=== PATIENT | female | born 1980 | race Hispanic/Latino ===

== ENCOUNTER 2018-09-07 05:37 | Inpatient (IN) | payer OTHER ==
[2018-09-05 14:51] LABS: HEMATOCRIT 37.8 % (36-48); MEAN CORPUSCULAR HEMOGLOBIN 31.4 pg (27.0-33.0); MEAN CORPUSCULAR HGB CONC 34.6 g/dL (32.0-36.0); MEAN CORPUSCULAR VOLUME 90.7 fL (79-99); NUCLEATED RED BLOOD CELLS 0.1 % (0.0-0.19); PLATELET COUNT (AUTO) 164 K/uL (130-400); RED BLOOD CELL COUNT(AUTO) 4.16 MIL/uL (4.00-5.50); RED CELL DISTRIBUTION WIDTH 13.2 % (11.0-15.5); WHITE BLOOD COUNT (AUTO) 6.6 K/uL (4.8-10.8)
[2018-09-06 08:20] LABS: HEPATITIS Bs ANTIGEN SCREEN P Negative (Negative)
[~2018-09-07] VITALS: Ht 170.2 cm; Wt 98.4 kg
[2018-09-07] MEDS ORDERED: LACTATED RINGERS 1000ML 1,000 ML IV SCH (06:00)
[2018-09-07] MEDS ORDERED: CEFAZOLIN SODIUM 1 GM VIAL IVP PRN (06:00)
[2018-09-07] MEDS ORDERED: CALDOLOR 800MG+NS 250ML 250 ML IV PRN (06:45)
[2018-09-07] MEDS ORDERED: OXYTOCIN 10 USP UNITS/ML ONE ×2 (07:52→09:00)
[2018-09-07] MEDS ORDERED: DURAMORPH PF1 MG/ML 10ML AMP IV ONE (08:28)
[2018-09-07] MEDS ORDERED: CEFAZOLIN SODIUM 1 GM VIAL IVP ONE (08:35)
[2018-09-07] MEDS: CEFAZOLIN 3GM /D5W 100ML 100 ML IV SCH ×2 (08:35→17:33)
[2018-09-07] MEDS ORDERED: OXYTOCIN-LR 20 UNITS/1000 ML 1,000 ML IV PRN (09:42)
[2018-09-07] MEDS ORDERED: SODIUM CHLORIDE 0.9% 10 ML VIAL IVP PRN (09:45)
[2018-09-07] MEDS ORDERED: MEASLES/MUMPS/RUBELLA VACCINE, LIVE 0.5 ML/VIAL SQ PRN (09:45)
[2018-09-07] MEDS ORDERED: ONDANSETRON HCL 4 MG/2 ML VIAL ONE (10:03)
[2018-09-07] MEDS ORDERED: METOCLOPRAMIDE 10 MG/2 ML VIAL IVP PRN (11:30)
[2018-09-07] MEDS ORDERED: NALOXONE HCL 0.4 MG/1 ML ML IVP PRN ×2 (11:30)
[2018-09-07] MEDS ORDERED: ONDANSETRON HCL 4 MG/2 ML VIAL IVP PRN (11:30)
[2018-09-07] MEDS ORDERED: PROMETHAZINE HCL 25 MG/ML 1ML AMPULE IM PRN (11:30)
[2018-09-07] MEDS ORDERED: MORPHINE SULFATE 2 MG/ML 1ML SYG IVP PRN (11:30)
[2018-09-07] MEDS ORDERED: HYDROCODONE/ACETAMINOPHEN 5/325 MG TAB PO PRN ×2 (11:30)
[2018-09-07] MEDS ORDERED: EPHEDRINE SULFATE 50 MG/ML AMPULE IVP PRN (11:30)
[2018-09-07] MEDS ORDERED: DiphenhydrAMINE HCL 50 MG/ML VIAL IVP PRN (11:30)
[2018-09-07 11:35] VITALS: BP 136/64
[2018-09-07 16:38] VITALS: BP 116/71
[2018-09-07] MEDS: DEXTROSE 5 %-0.45 % NACL 1,000 ML IV PRN (16:42)
[2018-09-07] MEDS ORDERED: LEVO175T9 PO (17:55)
[2018-09-07] MEDS ORDERED: LIOT5 PO (17:55)
[2018-09-07] MEDS: CALDOLOR 800MG+NS 250ML 250 ML IV SCH (18:07)
[2018-09-07 19:32] VITALS: BP 120/70
[2018-09-07 23:14] VITALS: BP 140/78
[2018-09-08] MEDS ORDERED: CEFAZOLIN SODIUM 1 GM VIAL ONE (01:43)
[2018-09-08] MEDS: DEXTROSE 5 %-0.45 % NACL 1,000 ML IV PRN (01:49)
[2018-09-08] MEDS: CALDOLOR 800MG+NS 250ML 250 ML IV SCH (01:55)
[2018-09-08 03:05] VITALS: BP 129/62
[2018-09-08 06:45] LABS: HEMATOCRIT 33.5 % (36-48); MEAN CORPUSCULAR HEMOGLOBIN 30.5 pg (27.0-33.0); MEAN CORPUSCULAR HGB CONC 33.4 g/dL (32.0-36.0); MEAN CORPUSCULAR VOLUME 91.2 fL (79-99); PLATELET COUNT (AUTO) 194 K/uL (130-400); RED BLOOD CELL COUNT(AUTO) 3.67 MIL/uL (4.00-5.50); RED CELL DISTRIBUTION WIDTH 13.5 % (11.0-15.5); WHITE BLOOD COUNT (AUTO) 11.5 K/uL (4.8-10.8)
[2018-09-08 07:30] VITALS: BP 121/79
--- NOTE | 2018-09-08 08:10 | NUR ---
PATIENT HAD SANTIAGO CATHETER REMOVED AND DRAINED URINE AND DISCARDED. INSTRUCTED ON NEED TO BE UP AND AMBULATE TODAY IN HALLWAY. VERBALIZED HAVING BEEN UP TO CHAIR FOR LAST 2 HOURS. PATIENT ASSISTED TO CHAIR TO HAVE SANTIAGO REMOVED AND ASSESSMENT.
[2018-09-08] MEDS ORDERED: BISACODYL 10 MG SUPP.RECT RC PRN (09:30)
[2018-09-08] MEDS ORDERED: LANOLIN 30GM OINTMENT TP PRN (09:30)
[2018-09-08] MEDS: IBUPROFEN 800 MG TAB PO SCH ×2 (10:00→18:26)
[2018-09-08 11:20] VITALS: BP 136/77
--- NOTE | 2018-09-08 11:30 | NUR ---
PATIENT UP AMBULATING IN HALLWAY AND WAS ABLE TO VOID . PATIENT TOLERATING ACTIVITY WELL.
--- NOTE | 2018-09-08 14:00 | NUR ---
UP AND AMBULATED IN HALLWAY.
[2018-09-08 16:30] VITALS: BP 132/86
[2018-09-08] MEDS: SIMETHICONE 80 MG TAB.CHEW PO PRN ×3 (16:35→21:28)
[2018-09-08 19:49] VITALS: BP 132/75
--- NOTE | 2018-09-08 19:50 | NUR ---
Patient: Patient awake in bed no complaints of pain. Fundus firm 1 finger below the umbilicus with small lochia rubra. She has an insulin pump right side of abdomen and a small insulin monitor on her left side intact. Plan of care discussed with patient verbalizes understanding.
[2018-09-08] MEDS: DOCUSATE SODIUM 100 MG CAP PO SCH (21:28)
[2018-09-09 00:19] VITALS: BP 138/79
[2018-09-09] MEDS: IBUPROFEN 800 MG TAB PO SCH ×2 (02:01→09:47)
[2018-09-09 04:21] VITALS: BP 134/69
[2018-09-09 07:12] VITALS: BP 125/71
--- NOTE | 2018-09-09 08:10 | NUR ---
PATIENT ASSESSED AND INCISION IS OPEN TO AIR AND LOOKS WNL. NO REDNESS, SWELLING OR DRAINAGE NOTED TO SITE. PATIENT STATES HAVING A BM EARLIER THIS MORNING AND EXPELLED FLATUS AND FEELS MUCH BETTER. ENCOURAGE TO AMBULATE.
[2018-09-09] MEDS: SIMETHICONE 80 MG TAB.CHEW PO PRN (09:44)
[2018-09-09] MEDS: DOCUSATE SODIUM 100 MG CAP PO SCH (09:44)
--- NOTE | 2018-09-09 11:15 | NUR ---
PATIENT SEEN BY DR. FERNANDO AND CALLED [facility] RE QUESTIONS REGARDING SCRIPT. PATIENT WAS GIVEN DISCHARGE INSTRUCTIONS AND VERBALIZED UNDERSTANDING INSTRUCTIONS GIVEN. INSTRUCTIONS ON WERE ALSO GIVEN.
[2018-09-09 11:28] VITALS: BP 122/81
--- NOTE | 2018-09-09 11:50 | NUR ---
PATIENT WAS TAKEN VIA W/C TO [facility] AND WAS DISCHARGED WITH BABY TO SPOUSE. PATIENT IS STABLE AND DENIES PAIN. SCRIPT FAXED TO [facility] PRIOR TO DISCHARGE PER PATIENT REQUEST.
== END 2018-09-09 11:50 | disposition home or self-care (01) | DRG 783 ==
LOC: LDH 05:37 → EDBD 05:37 → EDSTATUS 08:00 → WSH 11:31
PROC: 0UB70ZZ Excision of Bilateral Fallopian Tubes, Open Approach (ICD-10-PCS; 2018-09-07)
PROC: 3E0134Z Introduction of Serum, Toxoid and Vaccine into Subcutaneous Tissue, Percutaneous Approach (ICD-10-PCS; 2018-09-07)
PROC: 10D00Z1 Extraction of Products of Conception, Low, Open Approach (ICD-10-PCS; principal; 2018-09-07 08:00)
DX: O34.211 Maternal care for low transverse scar from previous cesarean delivery (principal); O24.02 Pre-existing type 1 diabetes mellitus, in childbirth; O99.284 Endocrine, nutritional and metabolic diseases complicating childbirth; E03.9 Hypothyroidism, unspecified; O69.81X0 Labor and delivery complicated by cord around neck, without compression, not applicable or unspecified; Z96.41 Presence of insulin pump (external) (internal); Z37.0 Single live birth; Z3A.38 38 weeks gestation of pregnancy; Z30.2 Encounter for sterilization; Z23 Encounter for immunization
CPT/HCPCS: 36415; 59510; 82947; 82948; 85027; 86592; 86850; 86900; 86901; 87340; A4344; A4606; G0378; J0690; J1741; J2274; J2405; J2590; J7120